=== PATIENT | male | born 1965 | race Caucasian/White ===

== ENCOUNTER 2017-05-24 07:54 | Emergency (ER) | payer SELFPAY ==
[~2017-05-24] VITALS: Ht 154.9 cm; Wt 72.3 kg
[2017-05-24 07:59] VITALS: BP 133/92
== END 2017-05-24 09:45 | disposition home or self-care (01) ==
LOC: ED 07:54
DX: L03.221 Cellulitis of neck (principal); I10 Essential (primary) hypertension; E11.9 Type 2 diabetes mellitus without complications